=== PATIENT | female | born 1975 | race Caucasian/White ===

== ENCOUNTER 2018-08-09 21:52 | Emergency (ER) | payer SELFPAY ==
[~2018-08-09] VITALS: Ht 167.6 cm; Wt 73.0 kg
[2018-08-09] MEDS ORDERED: SODIUM CHLORIDE 0.9% 1,000 ML IV ONE (22:12)
[2018-08-09] MEDS ORDERED: METHYLPREDNISOLONE SOD SUCC 40 MG/ML VIAL IV ONE (23:15)
[2018-08-10 00:12] VITALS: BP 132/88
== END 2018-08-10 07:49 | disposition home or self-care (01) ==
LOC: ER 21:52
DX: T78.40XA Allergy, unspecified, initial encounter (principal); L53.9 Erythematous condition, unspecified; J45.909 Unspecified asthma, uncomplicated; X58.XXXA Exposure to other specified factors, initial encounter
CPT/HCPCS: 96374; 99283; J7030